=== PATIENT | male | born 1965 | race Caucasian/White ===

== ENCOUNTER 2017-06-03 19:59 | Emergency (ER) | payer OTHER ==
[~2017-06-03] VITALS: Ht 188 cm; Wt 103.2 kg
[2017-06-03] MEDS ORDERED: LIDOCAINE20 MG/1 M5 PO (20:57)
[2017-06-03] MEDS ORDERED: PREDNISONE20 MG PO (20:57)
[2017-06-03] MEDS ORDERED: PEN-VEE K,VEET500 MG PO (20:57)
[2017-06-03 21:20] VITALS: BP 177/92
== END 2017-06-03 21:21 | disposition home or self-care (01) ==
LOC: EME 19:59
DX: K02.9 Dental caries, unspecified (principal); F17.200 Nicotine dependence, unspecified, uncomplicated
CPT/HCPCS: 99281; 99284; J7512

== ENCOUNTER 2018-03-26 04:59 | Emergency (ER) | payer OTHER ==
[~2018-03-26] VITALS: Ht 188 cm; Wt 88.3 kg
[~2018-03-26 04:59] MED LIST: LIDOCAINE20 MG/1 M5 PO; PEN-VEE K,VEET500 MG PO; PREDNISONE20 MG PO
[2018-03-26 05:02] VITALS: BP 153/91
== END 2018-03-26 06:34 | disposition left against medical advice (07) ==
LOC: EME 04:59
DX: R22.0 Localized swelling, mass and lump, head (principal); Z53.21 Procedure and treatment not carried out due to patient leaving prior to being seen by health care provider